=== PATIENT | female | born 1970 | race Two or more races ===

== ENCOUNTER 2021-10-26 21:59 | Emergency (ER) | payer BC ==
[~2021-10-26] VITALS: Ht 266.7 cm; Wt 56.7 kg
[2021-10-27] MEDS ORDERED: CEPHALEXIN500 MG PO (01:42)
[2021-10-27] MEDS ORDERED: KETO10TA2 PO (01:42)
== END 2021-10-27 01:50 ==
LOC: ER 21:59
DX: N39.0 Urinary tract infection, site not specified (principal); Z91.014 Allergy to mammalian meats; Z91.048 Other nonmedicinal substance allergy status